=== PATIENT | male | born 1980 | race Caucasian/White ===

== ENCOUNTER 2023-01-02 04:13 | Emergency (ER) | payer SELFPAY ==
[~2023-01-02] VITALS: Ht 175.3 cm; Wt 126.4 kg
[2023-01-02 06:56] VITALS: BP 130/91
[2023-01-02] MEDS ORDERED: HYDROmorphone HCL 2 MG/ML VL/or syr IM ONE (07:00)
[2023-01-02] MEDS ORDERED: PROMETHAZINE HCL 25 MG/ML 1ML IM ONE (07:00)
[2023-01-02] MEDS ORDERED: PRED20TA2 PO (07:31)
[2023-01-02] MEDS ORDERED: IBUP800T27 PO (07:31)
== END 2023-01-02 07:18 | disposition home or self-care (01) ==
LOC: ER 04:13
DX: M54.50 Low back pain, unspecified (principal); M51.36 Other intervertebral disc degeneration, lumbar region
CPT/HCPCS: 72128; 72131; 96372; 99285; J1170; J2550

== ENCOUNTER 2023-02-06 04:48 | Inpatient (IN) | payer SELFPAY ==
[~2023-02-06] VITALS: Ht 175.3 cm; Wt 122.2 kg
[~2023-02-06 04:48] MED LIST: IBUP800T27 PO; PRED20TA2 PO
[2023-02-06 05:18] LABS: Hematocrit 43.7 % (41.0-53.0); Hemoglobin 14.8 g/dL (13.5-17.5); Mean Corpuscular Hemoglobin 33.2 pg (28.0-32.0); Mean Corpuscular Hgb Conc. 33.9 g/dL (32.0-36.0); Mean Corpuscular Volume 97.8 fL (80.0-100.0); Red Blood Cells 4.46 10^6/uL (4.5-5.90); Red Cell Distribution Width 12.2 % (11.8-14.3); White Blood Cell 11.1 10^3/uL (4.4-10.8)
[2023-02-06 05:26] LABS: Basophils % (manual) 0 (0.0-2.0); Blast Cells 0; Eosinophils % (manual) 0 (0-7); Metamyelocytes % 0; Promyelocytes % 0; Reactive Lymphocytes 0
[2023-02-06 05:33] LABS: Albumin 3.3 g/dL (3.4-5.0); Calcium 9.1 mg/dL (8.5-10.1); Magnesium 2.3 mg/dL (1.6-2.6); Potassium 4.7 mmol/L (3.5-5.1)
[2023-02-06 05:35] LABS: BUN/Creatinine Ratio 21.6
[2023-02-06 05:37] LABS: Bilirubin, Total 0.5 mg/dL (0.2-1.0); Total Protein 7.1 g/dL (6.4-8.2)
[2023-02-06 05:48] LABS: INR 0.97 (0.9-1.15); Partial Thromboplastin Time 26.9 sec (24.6-33.4)
[2023-02-06 06:47] LABS: Band Neutrophils % (manual) 7; Lymphocytes % (manual) 24 (10.0-50.0); Monocytes % (manual) 3 (0-12); Myelocytes % 2
[2023-02-06] MEDS ORDERED: ENOXAPARIN SOD 120 MG/0.8 ML SYRINGE SC ONE (07:15)
[2023-02-06 08:26] LABS: Urine Bacteria NONE SEEN /hpf (None Seen); Urine Blood Negative /uL (Negative); Urine Mucus FEW (None Seen); Urine WBC 1 /hpf (0 - 3)
[2023-02-06 08:35] LABS: Urine Specific Gravity > 1.050 (1.001-1.035)
[2023-02-06] MEDS ORDERED: MORPHINE SULFATE INJ 2 MG/ml SYRG IV PRN (09:15)
[2023-02-06] MEDS ORDERED: PANTOPRAZOLE 40 MG/10 ML VIAL INJ IV ONE (09:15)
[2023-02-06] MEDS ORDERED: NITROGLYCERIN 0.4 MG SL TAB SL PRN (09:15)
[2023-02-06 09:43] LABS: Hematocrit 41.3 % (41.0-53.0); Hemoglobin 14.3 g/dL (13.5-17.5); Mean Corpuscular Hgb Conc. 34.6 g/dL (32.0-36.0); Mean Corpuscular Volume 95.3 fL (80.0-100.0); Red Blood Cells 4.34 10^6/uL (4.5-5.90)
[2023-02-06 09:49] LABS: Basophils % (manual) 0 (0.0-2.0); Blast Cells 0; Eosinophils % (manual) 0 (0-7); Metamyelocytes % 0; Myelocytes % 0; Promyelocytes % 0; Reactive Lymphocytes 0
[2023-02-06 09:59] LABS: INR 1.02 (0.9-1.15); Partial Thromboplastin Time 28.8 sec (24.6-33.4)
[2023-02-06] MEDS: PANTOPRAZOLE 40 MG/10 ML VIAL INJ IV SCH (10:21)
[2023-02-06] MEDS: SODIUM CHLORIDE 0.9% 1,000 ML IV SCH ×2 (10:21→22:35)
[2023-02-06 10:49] LABS: Band Neutrophils % (manual) 1; Lymphocytes % (manual) 11 (10.0-50.0); Monocytes % (manual) 3 (0-12)
[2023-02-06 12:20] LABS: Cholesterol 179 mg/dL (< 200); HDL Cholesterol 31 mg/dL (40-59); LDL Cholesterol 127 mg/dL (< 100); Triglycerides 148 mg/dL (< 150)
[2023-02-06 14:32] VITALS: BP 125/89
[2023-02-06] MEDS ORDERED: ARIP5TAB36 PO (14:45)
[2023-02-06] MEDS ORDERED: LISI30TA4 PO (14:45)
[2023-02-06 16:44] VITALS: BP 154/86
[2023-02-06] MEDS ORDERED: HEPARIN SODIUM (PORCINE) 5000 UNITS/ML 1ML VIAL IV ONE (17:00)
[2023-02-06] MEDS: HEPARIN DRIP/D5W 100UNITS/ML 250 ML IV SCH (17:23)
[2023-02-06 22:00] VITALS: BP 131/70
[2023-02-06 23:39] LABS: INR 1.03 (0.9-1.15); Partial Thromboplastin Time 66.9 sec (24.6-33.4)
[2023-02-07 05:00] VITALS: BP 102/65
[2023-02-07] MEDS: SODIUM CHLORIDE 0.9% 1,000 ML IV SCH (05:48)
[2023-02-07] MEDS: HEPARIN DRIP/D5W 100UNITS/ML 250 ML IV SCH (05:48)
[2023-02-07] MEDS: ACETAMINOPHEN 325 MG TAB PO PRN (05:56)
[2023-02-07 06:47] LABS: INR 1.03 (0.9-1.15); Partial Thromboplastin Time 52.9 sec (24.6-33.4)
[2023-02-07 07:51] LABS: Albumin 2.9 g/dL (3.4-5.0); Bilirubin, Total 0.5 mg/dL (0.2-1.0); Calcium 8.4 mg/dL (8.5-10.1); Potassium 3.9 mmol/L (3.5-5.1); Total Protein 5.9 g/dL (6.4-8.2)
[2023-02-07 09:30] VITALS: BP 128/84
[2023-02-07] MEDS: PANTOPRAZOLE 40 MG/10 ML VIAL INJ IV SCH (09:43)
[2023-02-07] MEDS: APIXABAN 5 MG TAB PO SCH ×2 (11:04→21:15)
[2023-02-07 11:28] LABS: INR 1.01 (0.9-1.15); Partial Thromboplastin Time 43.5 sec (24.6-33.4)
[2023-02-07 12:30] VITALS: BP 120/69
[2023-02-07 16:37] VITALS: BP 116/70
[2023-02-07 22:00] VITALS: BP 108/66
[2023-02-08 05:00] VITALS: BP 104/62
[2023-02-08] MEDS: ACETAMINOPHEN 325 MG TAB PO PRN (06:23)
[2023-02-08 06:27] LABS: Basophils # (auto) 0 10 ^3/uL (0-0.2); Basophils % (auto) 0.5 % (0.0-2.0); Eosinophils # (auto) 0.2 10 ^3/uL (0-0.8); Hematocrit 38.2 % (41.0-53.0); Hemoglobin 13.3 g/dL (13.5-17.5); Lymphocytes # (auto) 1.5 10 ^3/uL (0.4-5.4); Lymphocytes % (auto) 17.4 % (10.0-50.0); Mean Corpuscular Hemoglobin 33.5 pg (28.0-32.0); Mean Corpuscular Hgb Conc. 34.8 g/dL (32.0-36.0); Mean Corpuscular Volume 96.2 fL (80.0-100.0); Monocytes # (auto) 0.7 10 ^3/uL (0-1.3); Monocytes % (auto) 8.5 % (0.0-12.0); Neutrophils # (auto) 6.1 10 ^3/uL (1.6-8.6); Neutrophils % (auto) 71.6 % (37.0-80.0); Nucleated Red Blood Cells % 0.1 %; Red Blood Cells 3.96 10^6/uL (4.5-5.90); Red Cell Distribution Width 12.3 % (11.8-14.3); White Blood Cell 8.5 10^3/uL (4.4-10.8)
[2023-02-08 06:38] LABS: Calcium 8.6 mg/dL (8.5-10.1); Potassium 3.9 mmol/L (3.5-5.1)
[2023-02-08 06:41] LABS: BUN/Creatinine Ratio 21.2
[2023-02-08 09:00] VITALS: BP_SYST 129; BP_SYST 99; BP_DIAS 42; BP_DIAS 73
[2023-02-08] MEDS: PANTOPRAZOLE 40 MG/10 ML VIAL INJ IV SCH (10:00)
[2023-02-08] MEDS: APIXABAN 5 MG TAB PO SCH (10:00)
[2023-02-08] MEDS ORDERED: APIX5TAB PO ×3 (12:20→12:39)
[2023-02-08 13:00] VITALS: BP 114/86
[2023-02-08 13:40] VITALS: BP 114/86
[2023-02-14] MEDS ORDERED: APIXABAN 5 MG TAB PO SCH (10:00)
== END 2023-02-08 13:00 | disposition home or self-care (01) | DRG 175 ==
LOC: ER 04:48 → TELE 09:17 → TELE-WESTW 14:11
PROVIDERS: ADMIT Nurse Practitioner Family; ATTEND Internal Medicine Pulmonary Disease
DX: I26.99 Other pulmonary embolism without acute cor pulmonale (principal); J96.01 Acute respiratory failure with hypoxia; E46 Unspecified protein-calorie malnutrition; I82.413 Acute embolism and thrombosis of femoral vein, bilateral; I82.443 Acute embolism and thrombosis of tibial vein, bilateral; I82.433 Acute embolism and thrombosis of popliteal vein, bilateral; I10 Essential (primary) hypertension; R73.9 Hyperglycemia, unspecified; E66.01 Morbid (severe) obesity due to excess calories; Z20.822 Contact with and (suspected) exposure to COVID-19; Z68.39 Body mass index [BMI] 39.0-39.9, adult; Z71.3 Dietary counseling and surveillance; Z82.49 Family history of ischemic heart disease and other diseases of the circulatory system; Z87.891 Personal history of nicotine dependence
CPT/HCPCS: 36415; 71045; 71260; 80048; 80053; 80061; 81001; 83036; 83735; 83880; 84443; 84484; 85007; 85025; 85027; 85379; 85610; 85730; 87426; 93005; 93306; 93970; C9113; G0378

== ENCOUNTER 2024-06-08 23:32 | Emergency (ER) | payer OTHER ==
[~2024-06-08] VITALS: Ht 175.3 cm; Wt 124.0 kg
[~2024-06-08 23:32] MED LIST changes: +APIX5TAB PO; +ARIP1TAB59 PO; +IBUP-1456 PO; -IBUP800T27 PO; +LISI30TA8 PO; -PRED20TA2 PO
[2024-06-09] MEDS: ONDANSETRON HCL 4 MG/2 ML VIAL IV ONE
[2024-06-09 00:12] LABS: Alanine Aminotransferase 63 U/L (7-40); Alkaline Phosphatase 70 U/L (46-116); Anion Gap 8 (5-15); BUN/Creatinine Ratio 10.5 (10.0-20.0); Blood Urea Nitrogen 10 mg/dL (9-23); Calcium 9.9 mg/dL (8.7-10.4); Carbon Dioxide 24 mmol/L (20-30); Chloride 110 mmol/L (98-107); Glucose 132 mg/dL (74-106); Potassium 3.8 mmol/L (3.5-5.1); Sodium 142 mmol/L (136-145)
[2024-06-09 00:13] LABS: Albumin 4.6 g/dL (3.2-4.8); Aspartate Aminotransferase 29 U/L (13-40); Bilirubin, Total 0.7 mg/dL (0.2-1.0)
[2024-06-09 00:35] LABS: INR 1.05 (0.9-1.15); Partial Thromboplastin Time 29.8 SEC (24.5-34.5); Prothrombin Time 11.1 sec (9.3-11.8)
[2024-06-09 00:38] LABS: Eosinophils # (auto) 0.3 10 ^3/uL (0-0.8); Eosinophils % (auto) 2.6 % (0.0-7.0); Mean Corpuscular Hgb Conc. 34.7 g/dL (32.0-36.0); Monocytes # (auto) 0.8 10 ^3/uL (0-1.3)
[2024-06-09 00:40] LABS: Basophils # (auto) 0 10 ^3/uL (0-0.2); Basophils % (auto) 0.4 % (0.0-2.0); Hemoglobin 15.6 g/dL (13.5-17.5); Lymphocytes # (auto) 1.6 10 ^3/uL (0.4-5.4); Lymphocytes % (auto) 13.6 % (10.0-50.0); Mean Corpuscular Hemoglobin 34.3 pg (28.0-32.0); Mean Corpuscular Volume 98.8 fL (80.0-100.0); Monocytes % (auto) 6.8 % (0.0-12.0); Neutrophils % (auto) 76.6 % (37.0-80.0); Nucleated Red Blood Cells % 0.1 %; Red Blood Cells 4.55 10^6/uL (4.5-5.90); Red Cell Distribution Width 12.8 % (11.8-14.3); White Blood Cell 11.8 10^3/uL (4.4-10.8)
[2024-06-09] MEDS ORDERED: HYDR-4902 PO (03:07)
[2024-06-09 04:40] VITALS: PULSE 90; RESP 18; O2SAT 95
[2024-06-09 04:45] VITALS: BP 115/73; PULSE 92; RESP 16; TEMP 98.4; O2SAT 95
[2024-06-09] MEDS: HYDROmorphone HCL 2 MG/ML VL/or syr IV ONE (04:53)
[2024-06-09] MEDS: IOHEXOL 350 MG/ML 100ML IJ ONE (04:53)
== END 2024-06-09 05:08 | disposition home or self-care (01) ==
LOC: ER 23:32
DX: I82.401 Acute embolism and thrombosis of unspecified deep veins of right lower extremity (principal); R07.89 Other chest pain; I10 Essential (primary) hypertension; F17.210 Nicotine dependence, cigarettes, uncomplicated; Z79.891 Long term (current) use of opiate analgesic; Z79.1 Long term (current) use of non-steroidal anti-inflammatories (NSAID); Z98.890 Other specified postprocedural states
CPT/HCPCS: 36415; 71275; 80053; 83880; 84484; 85025; 85379; 85610; 85730; 93005; 93970; 99285; Q9967

== ENCOUNTER 2024-06-12 20:08 | Emergency (ER) | payer OTHER ==
[~2024-06-12] VITALS: Ht 175.3 cm; Wt 124.0 kg
[~2024-06-12 20:08] MED LIST changes: +HYDR-4902 PO
[2024-06-12 20:31] VITALS: BP 137/82; PULSE 95; RESP 17; O2SAT 96
== END 2024-06-12 22:00 | disposition left against medical advice (07) ==
LOC: ER 20:08
DX: R07.89 Other chest pain (principal); Z53.21 Procedure and treatment not carried out due to patient leaving prior to being seen by health care provider